=== PATIENT | male | born 1940 | race Caucasian/White ===

== ENCOUNTER → 2017-05-29 | Outpatient (CLI) | payer OTHER ==
[~2017-05-29] VITALS: Ht 182.9 cm; Wt 79.4 kg
== END | disposition home or self-care (01) ==
LOC: SRD 10:19 → EDSTATUS 06-02 09:00
PROVIDERS: ATTEND Otolaryngology
DX: Z01.818 Encounter for other preprocedural examination (principal); J39.2 Other diseases of pharynx
CPT/HCPCS: 71020-TC

== ENCOUNTER 2017-06-23 05:39 | Day surgery (SDC) | payer OTHER ==
[~2017-06-23] VITALS: Ht 182.9 cm; Wt 74.8 kg
[2017-06-23] MEDS ORDERED: LR 1,000 ML IV SCH (08:19)
[2017-06-23] MEDS ORDERED: ONDANSETRON HCL 4 MG/2 ML VIAL IVP PRN ×2 (08:30→09:00)
[2017-06-23] MEDS ORDERED: HYDROmorphone 2 MG/ML VIAL IVP PRN (08:30)
[2017-06-23] MEDS ORDERED: ePHEDrine sulfate 50 MG/ML VIAL IVP PRN (08:30)
[2017-06-23] MEDS ORDERED: HYDROmorphone 1 MG INJ. 1 MG/ML AMPUL IVP PRN (08:30)
[2017-06-23] MEDS ORDERED: MEPERIDINE HCL/PF 25 MG/ML DISP.SYRIN IVP PRN ×2 (08:30)
[2017-06-23] MEDS ORDERED: ACETAMINOPHEN/CODEINE 300 MG-30 MG TABLET PO PRN (09:00)
[2017-06-23 10:19] VITALS: BP_SYST 138
== END 2017-06-23 11:50 | disposition home or self-care (01) ==
LOC: SDS 05:39 → STU 05:40 → SDS 11:50
PROVIDERS: ATTEND Otolaryngology
DX: J39.2 Other diseases of pharynx (principal); E78.00 Pure hypercholesterolemia, unspecified; K21.9 Gastro-esophageal reflux disease without esophagitis; N40.0 Benign prostatic hyperplasia without lower urinary tract symptoms; Z98.890 Other specified postprocedural states; Z88.8 Allergy status to other drugs, medicaments and biological substances; I10 Essential (primary) hypertension; M19.90 Unspecified osteoarthritis, unspecified site; I48.0 Paroxysmal atrial fibrillation; Z87.891 Personal history of nicotine dependence
CPT/HCPCS: 31536; 88305; J7120